=== PATIENT | male | born 2000 | race Caucasian/White ===

== ENCOUNTER 2020-04-08 14:57 | Emergency (ER) | payer OTHER, BC ==
[2020-04-08] MEDS ORDERED: Lidocaine 1% with EPINEPHrine 1:100,000 20 ML MDV INFILT SCH (15:15)
--- NOTE | 2020-04-08 23:09 | EDM.PDOC ---
ED HPI GENERAL MEDICAL PROBLEM - General Chief Complaint: Laceration Stated Complaint: LACERATION LEFT HAND Time Seen by Provider: 04/08/20 15:05 Source of Information: Reports: Patient History Limitations: Reports: No Limitations - History of Present Illness INITIAL COMMENTS - FREE TEXT/NARRATIVE: Pt. states that he cut the back of his L hand with a razor blade one hour before coming to ER. He states that he has been holding pressure but it continues to bleed. Tetanus is up to date. Denies any numbness/tingling in the digits. Denies any injury elsewhere. Onset: Today Location: Reports: Upper Extremity, Left Quality: Reports: Sharp - Related Data Allergies Allergy/AdvReac Type Severity Reaction Status Date / Time No Known Allergies Allergy Verified 04/08/20 16:19 Home Meds: Home Meds Ibuprofen 400 mg PO ASDIRECTED PRN 06/26/18 [History] Naproxen Sodium [Aleve] 1 tab PO ASDIRECTED PRN 06/26/18 [History] Past Medical History - Past Health History Medical/Surgical History: Denies Medical/Surgical History Social & Family History - Tobacco Use Smoking Status *Q: Never Smoker - Recreational Drug Use Recreational Drug Use: No ED ROS GENERAL - Review of Systems Review Of Systems: Comprehensive ROS is negative, except as noted in HPI. ED EXAM, SKIN/RASH Exam: See Below Exam Limited By: No Limitations General Appearance: Alert, WD/WN, No Apparent Distress Extremities: Other (1 cm laceration to back of L hand, near base of thumb. ROM is within normal limits to the thumb. No obvious injury to underlying structures. CMS intact.) ED SKIN PROCEDURES - Laceration/Wound Repair Left Dorsal Hand Appearance: Subcutaneous Anesthetic Type: Local Local Anesthesia - Lidocaine (Xylocaine): 0.5% with EPI Local Anesthetic Volume: 2cc Skin Prep: Chlorhexidine (Hibiciens), Saline Saline Irrigation (cc's): 500 Exploration/Debridement/Repair: Wound Explored Closed with: Sutures Lac/Wound length In cm: 1 Suture Size: 3-0 # of Sutures: 1 Suture Type: Nylon Course - Vital Signs Last Recorded V/S: Last Vital Signs Temp 37.2 C 04/08/20 15:00 Pulse 88 04/08/20 15:00 Resp 16 04/08/20 15:00 BP 160/86 H 04/08/20 15:00 Pulse Ox 100 04/08/20 15:00 - Orders/Labs/Meds Meds: Medications Discontinued Medications Generic Name Dose Route Start Last Admin Trade Name Kristine PRN Reason Stop Dose Admin Lidocaine/Epinephrine 20 ml 04/08/20 15:15 04/08/20 15:08 Xylocaine 1% With Epinephrine 1:100,000 INFILT 20 ml ONETIME SARTHAK Administration Departure - Departure Time of Disposition: 16:00 Disposition: Home, Self-Care 01 Clinical Impression: Laceration of hand - Discharge Information Instructions: Laceration Care, Adult Referrals: PCP,None [Primary Care Provider] - Forms: ED Department Discharge Additional Instructions: Suture out in 10 days. This can be removed in the clinic of your choice. No lifting more than 20 pounds today or tomorrow. Keep clean and dry for 24 hours. Keep covered if you anticipate the area getting dirty, otherwise keep open to air as much as possible. Sepsis Event Note (ED) - Evaluation Sepsis Screening Result: No Definite Risk - Focused Exam Vital Signs: Vital Signs Temp Pulse Resp BP Pulse Ox 04/08/20 15:00 37.2 C 88 16 160/86 H 100 - Problem List Review Problem List Initiated/Reviewed/Updated: Yes - Assessment/Plan Plan: Suture out in 10 days. This can be removed in the clinic of your choice. No lifting more than 20 pounds today or tomorrow. Keep clean and dry for 24 hours. Keep covered if you anticipate the area getting dirty, otherwise keep open to air as much as possible.
== END 2020-04-08 15:25 | disposition home or self-care (01) ==
LOC: VM.ED 14:57
DX: S61.412A Laceration without foreign body of left hand, initial encounter (principal); W27.8XXA Contact with other nonpowered hand tool, initial encounter
CPT/HCPCS: 12001; 99282